=== PATIENT | male | born 1935 | race Caucasian/White ===

== ENCOUNTER 2025-08-20 07:40 | Outpatient (OUT) | payer MEDICARE, SELFPAY ==
--- OUTSIDE RECORDS SUMMARY | 2024-09-18 08:49 | XMS_ITS | Continuity of Care Document ---
Author Organization [facility] Address [address] [place] [address] Phone Care Team Providers Care Storage Specialist Name Role Phone Martell Lynch Unavailable Unavailable Procedures Procedure Date Covid-19 Vaccine Administration 024 Covid-19 Vaccine, 50 Mcg Moderna 12y Plu s Admin influenza virus vac FLU VACC PRSV FREE INC ANTIG Admin Moderna Bvalent Booster 18 And Old er Moderna Booster (Low Dose) Moderna Booster Moderna Booster Moderna Booster Admin influenza virus vac FLU VACC PRSV FREE INC ANTIG Admin influenza virus vac FLU VACC PRSV FREE INC ANTIG Advance Directives Directive Yes / No Effective Date File Name No Information Encounters Encounter Description Practice Location Reason(s) For Visit Diagnoses Date Provider Providers Copied on Encounter [facility], [address], [place], [id number], tel:[phone] [facility] No Information Alex Martínez. [address], [place], [id number], [place]. tel:[phone] [facility], [address] [place] [address], [id number], tel:[phone] [facility] No Information Alex Martínez. [address], [place], [id number], [place]. tel:[phone] [facility], [address], [place], [id number], [place] tel:[phone] [facility] No Information Viscayesha Martínez. [address], [place], [id number], [place]. tel:[phone] [facility], [address], [place], [id number], [place] tel:[phone] [facility] No Information Viscayesha Martínez. [address], [place], [id number], [place]. tel:[phone] [facility], [address], [place], [id number], [place] tel:[phone] [facility] No Information Alex Martínez. [address], [place], [id number], [place]. tel:[phone] [facility], [address], [place], [id number], [place] tel:[phone] [facility] No Information Alex Martínez. [address], [place], [id number], [place]. tel:[phone] [facility], [address] [place] [address], [id number], [place] tel:[phone] [facility] No Information Alex Martínez. [address], [place], [id number], [place]. tel:[phone] Family History Family Member Type Diagnosis Age At Onset No Information Immunizations Vaccine Date Status Comments Spikevax 12y+ administered Source: New Im munization Record Influenza, quadrivalent, hig h dose, injectable, split virus, preservative free, 0.7 mL dose, Fluzone High-Dose Quad administered Source: New Immuniza tion Record Cov-19 administered Source: New Imm unization Record Moderna Booster administered Source: New Immunization Record Moderna Booster administered Source: New Immunization Record Influenza, quadrivalent, hig h dose, injectable, split virus, preservative free, 0.7 mL dose, Fluzone High-Dose Quad administered Source: New Immuniza tion Record Influenza, quadrivalent, hig h dose, injectable, split virus, preservative free, 0.7 mL dose, Fluzone High-Dose Quad administered Source: New Immuniza tion Record Payers Payer name Insurance type Covered green party ID Authoriza tion(s) Medicare PPS MB [id number] Medicare PPS MB [id number] Medicare PPS MB [id number] Medicare PPS MB [id number] [employer] [place] [id number] Medicare PPS MB [id number] Medicare PPS MB [id number] Medicare PPS MB [id number] Medicare PPS MB [id number] Social History Type Description Quantity Date Captured Comments Alcohol Use Details Unknown Caffeine Use Details Unknown Tobacco Use Status No Information Smoking Status No Information Sex Male Sexual Orientation Straight or heterosexual Gender Identity Male Chief Complaint And Reason For Visit No Information Reason For Referral Reason For Referral No Information Plan Of Treatment Date Type Action Status Goal Hep A. Due on du e Goal PRAPARE ASSESSMENT. Due on N due Goal Unhealthy drug use screening . Due on due Goal Influenza vaccine. Due on Oc due Goal Hep A. Due on du e Goal Tdap Vaccine. Due on 2023 due Goal Tdap. Due on due Goal Zoster vaccine (1st). Due on due Goal Depression screening. Due on due Goal Tdap. Due on due Goal Depression screening. Due on due Goal Zoster vaccine (1st). Due on due Goal Influenza vaccine. Due on Oc due Goal PRAPARE ASSESSMENT. Due on O due Goal Tdap. Due on due Goal Depression screening. Due on due Goal Zoster vaccine (). Due on due Goal Influenza vaccine. Due on Oc due Goal PRAPARE ASSESSMENT. Due on S due History Of Present Illness Encounter Date Complaint History Of Prese nt Illness No Information Functional Status Date Functional Assessmen t No Information Instructions Date Instruction Additional Infor mation No Information Assessments Type Assessment Date No Information Patient Care Teams Name Effective Dates (start - stop) Status Members No Information
--- OUTSIDE RECORDS SUMMARY | 2025-08-18 21:07 | XMS_ITS | Continuity of Care Document ---
Author Organization [facility] Address [address] [place] [address] Phone Care Team Providers Care Licensed Loan Officer Name Role Phone Anel Galeano DO Primary Care Provider Anel Galeano DO Attending Provider [phone] Cristina Celaya FILM PROCESSING SUPERVISOR-C Attending Provider [phone] Franklin Gage MD Attending Provider [phone] Care Teams Patient Care Team Team Status: Active Member Role Status Dates Anel Galeano , DO Primary Care Provider Active Visit Care Team Team Status: Inactive Member Role Status Dates Anel Galeano , DO Primary Care Provider Active Start: July 28, 2025 End: July 28, 2025 Aenl Galeano , DO Attending Provider Active Start: July 28, 2025 End: July 28, 2025 Visit Care Team Team Status: Inactive Member Role Status Dates Anel Galeano , DO Primary Care Provider Active Start: July 28, 2025 End: July 28, 2025 Anel Galeano , DO Attending Provider Active Start: July 28, 2025 End: July 28, 2025 Visit Care Team Team Status: Inactive Member Role Status Dates Anel Galeano , DO Primary Care Provider Active Start: July 28, 2025 End: July 28, 2025 Anel Galeano , DO Attending Provider Active Start: July 28, 2025 End: July 28, 2025 Visit Care Team Team Status: Inactive Member Role Status Dates Anel Galeano DO Primary Care Provider Active Start: August 07, 2025 End: August 07, 2025 Anel Galeano DO Attending Provider Active Start: August 07, 2025 End: August 07, 2025 Visit Care Team Team Status: Inactive Member Role Status Dates Anel Galeano DO Primary Care Provider Active Start: August 18, 2025 End: August 18, 2025 VELMA Saravia Attending Provider Active Start: August 18, 2025 End: August 18, 2025 Visit Care Team Team Status: Inactive Member Role Status Dates Franklin Gage MD Attending Provider Active S tart: August 18, 2025 End: August 18, 2025 Anel Galeano DO Primary Care Provider Active Start: August 18, 2025 End: August 18, 2025 Chief Complaint and Reason for Visit Chief Complaint Admit Date abdominal pain, fatigue July 28, 2025 1:22pm R07.89 July 28, 2025 2:41pm R53.83, R07.89, E11.9 July 28 3:00pm R02.02 R53.83 R07.89 R93.89 August 07, 2025 2:13pm Ct done 08/07- Showed infrarenal aortic a neurysm August 18, 2025 9:03am I71.40 - Abdominal aortic aneurysm, with out ruptur August 18, 2025 9:07am Reason for Visit Admit Date Chest tightness July 28, 2025 1:22pm Coronary artery disease July 28, 2025 1:22pm Fatigue July 28, 2025 1:22pm Shortness of breath July 28, 2025 1:22pm Type 2 diabetes mellitus July 28, 2025 1:22pm Abdominal aortic aneurysm August 18, 2025 9:03am Reason for Referral Referring Provider Name Referring Provider Address Referring Provider Phone Referral Date Requested Appointment Date Referral Reason July R06.02 - Shortness of breath,R53.83 - Other fatigue,R07.89 - Other chest pain,I25.10 - Atherosclerotic heart disease of [place] coronary artery without angina pectoris,E11.9 - Type 2 diabetes mellitus without complications Allergies, Adverse Reactions, Alerts Allergen Type Severity Reaction Last Updated Verified Status Penicillins Allergy Unknown Hives August 18, 2025 9:27am Ye s Active Social History Smoking Status Status Start Date End Date Date of Observa tion Ex-smoker (finding) August 18, 2025 9:29am Observation Status Observation Response Date of Response Legal Sex Male (finding) Sex Assigned At Male December [birth year] Family History Relationship Condition Age at Onset Recorded Date/T deneen son Coronary artery disease Unknown mother Cerebrovascular accident (CVA) Unknown brother Stenosis of carotid artery Unknown father Stenosis of carotid artery Unknown Arteriosclerotic cardiovascular disease U nknown brother Unknown Heart disease Unknown father Unknown Heart disease Unknown mother History of stroke Unknown Unknown son Heart disease Unknown Problems Active Problems Medical Problem Onset Date Status Comments H/O colectomy Unknown Active Fatigue Unknown Active Shortness of breath Unknown Active Type 2 diabetes mellitus Unknown Active Coronary artery disease Unknown Active Abdominal aortic aneurysm Unknown Active Anemia Unknown Active Confusion Unknown Active Headache Unknown Active Hyperlipemia Unknown Active Abnormal CXR Unknown Active Hypertension, essential Unknown Active Chest tightness Unknown Active H/O carotid endarterectomy Unknown Active P roblem List clean-up per request of Phys. EHR Cmte Hx-TIA (transient ischemic attack) Unknown Active Carotid stenosis, bilateral Unknown Active Bilateral carotid artery disease Unknown Active Inactive/Resolved Problems Medical Problem Onset Date Status Comments Colon cancer Unknown Resolved Problem List cl teddy-up per request of Phys. EHR Cmte Stenosis of right internal carotid artery Unknown Resolved Problem List clean-u p per request of Phys. EHR Cmte Acute urinary retention Unknown Resolved Medications Medication Status Dose Units Route Directions Qty Days St art Date Stop Date End Date Instructions Adherence Atorvastati n 80 mg tablet Discont inued 80 MG PO Daily at bedtime March 20, 2024 9:19am May 14, 2025 1:54p m Diphenoxyla te-Atropine 2.5-0.025 mg tablet Discont inued 1 TAB PO Three times daily March 28, 2024 3:18pm March 28, 2024 3:19p m Diphenoxyla te-Atropine 2.5-0.025 mg tablet Discont inued 1 TAB PO Three times daily 270 March 28, 2024 3:19pm [facility] 2023 1:12p m Diphenoxyla te-Atropine 2.5-0.025 mg tablet Discont inued 1 TAB PO Three times daily 270 90 Septem gerardo 2023 1:12pm Decem gerardo 2023 9:53a m Atenolol 50 mg tablet Active 50 MG PO Daily 90 Octobe r 2023 2:58pm Unknown Diphenoxyla te-Atropine 2.5-0.025 mg tablet Discont inued 1 TAB PO Three times daily 270 90 Decemb er 2023 9:53am February 02, 2025 8:42p m Metformin 500 mg tablet extended release 24 hr Discont inued 1000 MG PO Every evening 180 Decemb er 2023 9:31am Janua ry 2024 9:30a m Metformin 500 mg tablet extended release 24 hr Discont inued 1000 MG PO Every evening 180 Januar y 2024 9:30am Septe mber 2024 1:57p m Diphenoxyla te-Atropine 2.5-0.025 mg tablet Discont inued 1 TAB PO Three times daily 270 90 February 02, 2025 8:42pm May 12, 2025 12:43 pm Tamsulosin (Flomax) 0.4 mg capsule Active 0.4 MG PO Daily February 26, 2025 9:46pm Unknown Diphenoxyla te-Atropine 2.5-0.025 mg tablet Discont inued 1 TAB PO Three times daily 270 90 May 12, 2025 12:43p m Octob er 2024 12:05 pm Atorvastati n 80 mg tablet Active 80 MG PO Daily at bedtime May 14, 2025 1:54pm Unknown Diphenoxyla te-Atropine 2.5-0.025 mg tablet Active 1 TAB PO Three times daily 270 90 Octobe r 2024 12:04p m Unknown Zinc 50 mg capsule Active 25 MG PO Daily February 11, 2025 12:00a m Unknown PREVOGEN Active 1 TAB PO Daily February 11, 2025 12:00a m Unknown Famotidine (Acid-Pep) 20 mg tablet Active 20 MG PO Daily February 11, 2025 12:00a m Unknown Tamsulosin (Flomax) 0.4 mg capsule Discont inued 0.4 MG PO Daily February 11, 2025 12:00a m February 26, 2025 9:46p m Atorvastati n 80 mg Tablet Discont inued 80 MG PO Daily at bedtime 2019 1:00am March 20, 2024 9:19a m Diphenoxyla te-Atropine 2.5-0.025 mg Tablet Discont inued 1 TAB PO Three times daily 2019 1:00am March 28, 2024 3:19p m Clopidogrel 75 mg Tablet Discont inued 75 MG PO Daily with lunch 2019 1:00am April 07, 2024 2:11p m Famotidine 20 mg Tablet Discont inued 20 MG PO Daily 2019 1:00am May 10, 2020 9:11a m Nitroglycer in 0.4 mg Tablet, Sublingual Discont inued 1 TAB SUBLIN GUAL As Directed as needed for Chest Pain 2019 1:00am [facility] 2024 3:53p m Max 3 doses Docusate Sodium 100 mg Capsule Discont inued 100 MG PO Daily as needed for Constipatio n 2019 1:00am May 10, 2020 9:11a m Metformin 500 mg Tablet Extended Release 24 Hr Discont inued 500 MG PO Daily at bedtime 2019 1:00am [facility] 2023 12:57 pm Atenolol 50 mg Tablet Discont inued 50 MG PO Daily 2019 1:00am [facility] er 2023 2:58p m Multivit-Mi n-Folic-Vit K-Lycop (Men's 50 Plus Multivitami n) 400-20-370 mcg Tablet Discont inued 1 TAB PO Daily 2019 1:00am February 11, 2025 8:15a m Metformin 500 mg tablet extended release 24 hr Discont inued 500 MG PO Twice daily Sept gerardo 2023 12:56p m Dece gerardo 2023 9:10a m Metformin 500 mg tablet extended release 24 hr Discont inued 1000 MG PO Every evening Dece er 2023 9:09am [facility] gerardo 2023 9:31a m Aspirin 81 mg tablet,chew able Active 1 TAB PO Daily April 07, 2024 12:00a m FreeTextSi tablet Orally Once a day; Note: Source Status: Taking; Provider: Froylan Tam ( ) Unknown Cholecalcif jelly (Vitamin D3) 125 mcg (5,000 unit) capsule Active 125 MCG PO Daily April 07, 2024 12:00a m Unknown Cyanocobala min (Vitamin B-12) 1,000 mcg capsule Active 1000 MCG PO Daily April 07, 2024 12:00a m Unknown Finasteride 5 mg tablet Active MG PO April 06, 2025 12:00a m Unknown Blood Sugar Diagnostic (True Metrix Glucose Test Strip) strip Active STRIP .ROUTE .MEDSUPPLY April 06, 2025 12:00a m As directed Polyethylen e Glycol 3350 (Clearlax) 17 gram/dose powder Active 17 GM PO Daily April 06, 2025 12:00a m Unknown Metformin 500 mg tablet extended release 24 hr Active 500 MG PO Twice daily 2024 1:57pm Unknown Nitroglycer in 0.4 mg tablet, sublingual Active 0.4 MG SUBLIN GUAL every 5 to 15 minutes as needed for Chest Pain 14 2024 3:53pm Max 3 doses Unknown Immunizations Immunization Event Date Not Given Reason Dose Number Staffing Rn Lot Number Vaccine Information Statement (VIS) Detail Administration Location COVID-19 mRNA-1273 (Moderna) November 27, 2020 [id number] [facility] COVID-19 mRNA-1273 (Moderna) September 02, 2021 COVID-19 mRNA-1273 (Moderna) February 06, 2022 COVID-19 mRNA-1273 (Moderna) December 24, 2020 [id number] [facility] COVID-19 (MODERNA) 12Y and older September 13, 2023 Influenza vaccine, quadrivalent, adjuvanted September 13, 2023 influenza, unspecified formulation August 29, 2022 RSV, preF3, adj, pf August 15, 2023 Zoster Vaccine Recombinant, Adjuvanted May 04, 2023 Zoster Vaccine Recombinant, Adjuvanted August 15, 2023 Tetanus, Diphtheria adult, 5 Lf pres free abs March 28, 2023 Trivalent Influenza Vaccine August 19, 2021 Medical Equipment Device Date Implanted Device Details Cardiovascular patch, animal-derived December 03, 2019 GABRIELA: [id number] Issuing Agency: [employer] Device Id: [id number] Expiration Date: 2024-05-04 Lot Number: [id number] Serial Number: [id number] Procedures Procedure Date Performed Status XR chest 2V* July 28, 2025 3:08pm comp leted US aorta August 18, 2025 9:07am comple [place] CT chest w con August 07, 2025 2:13pm complet ed Relevant Diagnostic Tests and/or Laboratory Data Laboratory Results Test Collection Date/Time Result Date/Time Result Interpretation Reference Range Result Comment Performing Site Bedside Hemoglobi n A1c July 28, 2025 2:08pm July 28, 2025 2:08pm 6.7 % Corrected White Blood Count July 28, 2025 3:03pm July 28, 2025 4:11pm 8.0 10*3/uL 4.1-10.5 [facility] [id number] [address] [facility] [address] Uncorrect ed WBC Count July 28, 2025 3:03pm July 28, 2025 4:11pm 8.0 10*3/uL 4.1-10.5 [facility] [id number] [address] [facility] [address] Red Blood Count July 28, 2025 3:03pm July 28, 2025 4:11pm 3.84 10*6/uL Below low normal 3.90-5.60 [facility] [id number] [address] [facility] [address] Hemoglobi n July 28, 2025 3:03pm July 28, 2025 4:11pm 12.2 g/dL Below low normal 13.0-17.0 [facility] [id number] [address] [facility] [address] Hematocri t July 28, 2025 3:03pm July 28, 2025 4:11pm 36.3 % Below low normal 38.8-50.0 [facility] [id number] [address] [facility] [address] Mean Corpuscul ar Volume July 28, 2025 3:03pm July 28, 2025 4:11pm 94.5 fL 83.5-101 [facility] [id number] [address] [facility] [address] Mean Corpuscul ar Hemoglobi n July 28, 2025 3:03pm July 28, 2025 4:11pm 31.7 pg 27.5-35.2 [facility] [id number] [address] [facility] [address] Mean Corpuscul ar Hemoglobi n Concent July 28, 2025 3:03pm July 28, 2025 4:11pm 33.5 g/dL 32.5-35.6 [facility] [id number] [address] [facility] [address] Red Cell Distribut ion Width July 28, 2025 3:03pm July 28, 2025 4:11pm 13.3 % 12.0-14.8 [facility] [id number] [address] [facility] [address] Platelet Count July 28, 2025 3:03pm July 28, 2025 4:11pm 209 10*3/uL 150-450 [facility] [id number] [address] [facility] [address] Mean Platelet Volume July 28, 2025 3:03pm July 28, 2025 4:11pm 9.4 fL 6.6-10.1 [facility] [id number] [address] [facility] [address] Neutrophi ls (%) (Auto) July 28, 2025 3:03pm July 28, 2025 4:11pm 69.8 % . [facility] [id number] [address] [facility] [address] Lymphocyt es (%) (Auto) July 28, 2025 3:03pm July 28, 2025 4:11pm 19.2 % . [facility] [id number] [address] [facility] [address] Monocytes (%) (Auto) July 28, 2025 3:03pm July 28, 2025 4:11pm 9.3 % . [facility] [id number] [address] [facility] [address] Eosinophi ls (%) (Auto) July 28, 2025 3:03pm July 28, 2025 4:11pm 1.1 % . [facility] [id number] [address] [facility] [address] Basophils (%) (Auto) July 28, 2025 3:03pm July 28, 2025 4:11pm 0.6 % . [facility] [id number] [address] [facility] [address] Nucleated RBC Relative Count (auto) July 28, 2025 3:03pm July 28, 2025 4:11pm 0.0 /100{WB C} 0-0.5 [facility] [id number] [address] [facility] [address] Neutrophi ls # (Auto) July 28, 2025 3:03pm July 28, 2025 4:11pm 5.6 10*3/uL 1.8-7.7 [facility] [id number] [address] [facility] [address] Lymphocyt es # (Auto) July 28, 2025 3:03pm July 28, 2025 4:11pm 1.5 10*3/uL 1.00-4.8 [facility] [id number] [address] [facility] [address] Monocytes # (Auto) July 28, 2025 3:03pm July 28, 2025 4:11pm 0.7 10*3/uL 0.0-0.8 [facility] [id number] [address] [facility] [address] Eosinophi ls # (Auto) July 28, 2025 3:03pm July 28, 2025 4:11pm 0.1 10*3/uL 0.0-0.45 [facility] [id number] [address] [facility] [address] Basophils # (Auto) July 28, 2025 3:03pm July 28, 2025 4:11pm 0.0 10*3/uL 0.0-0.2 [facility] [id number] [address] [facility] [address] Glucose Level July 28, 2025 3:03pm July 28, 2025 4:25pm 141 mg/dL Above high normal 70-100 ADA recommended reference rangeRandom Glucose Reference Range is dependent on time and content of last meal. Glucose of more than 200 mg/dL in a nonstressed, ambulatory subject supports the diagnosis of Diabetes Mellitus. [facility] [id number] [address] [place] [id number] Blood Urea Nitrogen July 28, 2025 3:03pm July 28, 2025 4:25pm 17 mg/dL 7-25 [facility] [id number] [address] [place] 7931470 Creatinin e July 28, 2025 3:03pm July 28, 2025 4:25pm 1.15 mg/dL 0.70-1.30 [facility] [id number] [address] [place] 7931470 Estimated GFR (CKD-EPI) July 28, 2025 3:03pm July 28, 2025 4:25pm > 60.0 mL/Min [facility] [id number] [address] [place] 7931470 Sodium Level July 28, 2025 3:03pm July 28, 2025 4:25pm 138 mmol/L 136-145 [facility] [id number] [address] [place] 7[address]1470 Potassium Level July 28, 2025 3:03pm July 28, 2025 4:25pm 4.4 mmol/L 3.5-5.1 [facility] [id number] [address] [facility] [address] Chloride Level July 28, 2025 3:03pm July 28, 2025 4:25pm 99 mmol/L 98-107 [facility] [id number] [address] [place] 7[address]1470 Carbon Dioxide Level July 28, 2025 3:03pm July 28, 2025 4:25pm 30.8 mmol/L 21.0-31.0 [facility] [id number] [address] [place] 7[address]1470 Anion Gap July 28, 2025 3:03pm July 28, 2025 4:25pm 12.6 mEq/L 6.0-15.0 [facility] [id number] [address] [place] 7[address]1470 Calcium Level July 28, 2025 3:03pm July 28, 2025 4:25pm 9.7 mg/dL 8.6-10.3 [facility] [id number] [address] [facility] [address] Total Protein July 28, 2025 3:03pm July 28, 2025 4:25pm 7.1 g/dL 6.4-8.9 [facility] [id number] [address] [facility] [address] Albumin July 28, 2025 3:03pm July 28, 2025 4:25pm 4.3 g/dL 3.5-5.7 [facility] [id number] [address] [facility] [address] Globulin July 28, 2025 3:03pm July 28, 2025 4:25pm 2.8 g/dL [facility] [id number] [address] [facility] [address] Albumin/G lobulin Ratio July 28, 2025 3:03pm July 28, 2025 4:25pm 1.5 [facility] [id number] [address] [place] [address] Total Bilirubin July 28, 2025 3:03pm July 28, 2025 4:25pm 1.3 mg/dL Above high normal 0.3-1.0 Samples from patients who have taken Naproxen have shown spurious elevation in Total Bilirubin levels. A metabolite of Naproxen, O-desmethyln aproxen, has been shown to interfere with the Shanda-Sylvester underwood method for measuring Total Bilirubin. [facility] [id number] [address] [facility] [address] Aspartate Amino Transf (AST/SGOT ) July 28, 2025 3:03pm July 28, 2025 4:25pm 16 U/L 13-39 [facility] [id number] [address] [facility] [address] Alanine Aminotran sferase (ALT/SGPT ) July 28, 2025 3:03pm July 28, 2025 4:25pm 15 U/L 7-52 [facility] [id number] [address] [facility] [address] Alkaline Phosphata se July 28, 2025 3:03pm July 28, 2025 4:25pm 74 U/L 34-104 [facility] [id number] [address] [facility] [address] Iron Level July 28, 2025 3:03pm July 28, 2025 4:25pm 72 ug/dL 50-212 [facility] [id number] [address] [place] [address] Total Iron Binding Capacity July 28, 2025 3:03pm July 28, 2025 4:25pm 339 ug/dL 255-450 [facility] [id number] [address] [place] [address] Iron Saturatio n July 28, 2025 3:03pm July 28, 2025 4:25pm 21.2 % 20-50 [facility] [id number] [address] [place], [place] [address] Transferr in July 28, 2025 3:03pm July 28, 2025 4:25pm 242 mg/dL 203-362 [facility] [id number] [address] [place] [address] Ferritin July 28, 2025 3:03pm July 28, 2025 4:40pm 58.6 ng/mL 23.9-336.2 [facility] [id number] [address] [place] [address] Vitamin B12 Level July 28, 2025 3:03pm July 28, 2025 5:56pm 1699 pg/mL Above high normal 180-914 [facility] [id number] [address] [place] [address] Folate July 28, 2025 3:03pm July 28, 2025 5:56pm > 49.6 ng/mL >5.9 Folate reference range: >5.9 ng/mlThe WHO technical consultation on folate and vitamin [id number] ies has determined that folate concentratio ns lessthan 4 ng/ml are considered deficient. [facility] [id number] [address] [facility] [address] Free Thyroxine July 28, 2025 3:03pm July 28, 2025 4:34pm 1.13 ng/dL Above high normal 0.61-1.12 [facility] [id number] [address] [place] [address] Thyroid Stimulati ng Hormone 3rd Gen July 28, 2025 3:03pm July 28, 2025 4:32pm 3.42 u[iU]/m L 0.45-5.33 [facility] [id number] [address] [place] [address] Pharmacy Creatinin e Clearance (Chem July 28, 2025 3:03pm July 28, 2025 4:25pm N/A [facility] [id number] [address] [place] [address] Diagnostic Imaging Reports Author Franklin Gage [facility] Report Date/Time August 18, 2025 9 :38am [facility] [address] [place], [place] [address] Ultrasound Report Signed Patient: Ray Kidd MR#: [id number] : 1935 Acct:[id number] Age/Sex: 89 / M ADM Date: Loc: [facility] Room: Type: [facility] [address] Attending Dr: Franklin Gage MD Ordering Provider: Franklin Gage MD Date of Service: 08/18/25 US/US aorta: I71.40 - Abdominal aortic aneurysm, without rupture, unsp... Copies to: Franklin Gage MD~ ULTRASOUND OF THE ABDOMINAL AORTA: CLINICAL INFORMATION: Abdominal aortic aneurysm noted on CT COMPARISON : CT scan TECHNIQUE AND FINDINGS: Multiple ultrasonographic scans of the abdominal aorta were obtained and show Following measurement were obtained: Proximal height: 2.51 cm width : 2.1 Mid height: 2 cm width : 1.8 Distal height: 3.91 cm width : 4.2 Bilateral common iliac arteries measure 1.1 in height and 1.1 in width on the right and 1.2 in height and 1.0 in width on the left US/US aorta IMPRESSION: 4.2 CM INFRARENAL ABDOMINAL AORTIC ANEURYSM Impression dictated by: Franklin Gage M.D. 08/18/2025 9:38 AM Dictation Location: [place] [address] Tech: Carolina Lance Transcribed By: HERMELINDA 08/18/25 0938 Dictated By: Franklin Gage MD 08/18/25 0937 Signed By: <Electronically signed by MD Franklin Gage in OV> 08/18/25 0938 Vital Signs Vital Reading Result Reference Range Collection Date/Time Height 65 [in_i] July 28, 2025 1:58pm Weight 60.55 kg July 28, 2025 1:58pm Body Temperature 97.9 [degF] 97.6-99.0 July 072024 1:58pm Heart Rate 55 /min 60-100 July 28, 2025 1:58pm Oxygen saturation by Pulse oximetry 96 % 95-100 July 28, 2025 1:58pm BP Systolic 106 mm[Hg] 100-140 July 28, 2025 1:58pm BP Diastolic 60 mm[Hg] 60-100 July 28, 2025 1:58pm BMI (Body Mass Index) 22.1 kg/m2 Sept2024 1:58pm Height 65 [in_i] August 18, 025 9:30am Weight 60.00 kg August 18, 025 9:30am Body Temperature 98.2 [degF] 97.6-99.0 August 9:30am Heart Rate 72 /min 60-100 August 18, 025 9:30am Respiratory rate 16 /min 12-24 August 9:30am Oxygen saturation by Pulse oximetry 97 % 95-100 August 18, 2025 9 :30am BP Systolic 122 mm[Hg] 100-140 August 18, 2 025 9:30am BP Diastolic 82 mm[Hg] 60-100 August 18, 2 025 9:30am BMI (Body Mass Index) 22.0 kg/m2 Octobe r 2024 9:30am Advance Directives Advance Directive Response Recorded Date/ Time Advance Directives No August 06, 2017 7:03am Insurance Providers Guarantor Ray Kidd Address [address] [place] [address] [place] [address] Contact Info. Home Phone: Payer Policy Id Subscriber's Name Subscriber Id Effectiv e Date Expiration Date Dino KOHLI/BEN [id number] Ray Kidd [id number] Medicare [id number] Ray Kidd [id number] Encounters Encounter Location(s) Arrival/Admit Date Discharge/Depart Date Provider(s) Departed Physician/Prov ider Office Visit -[facility] July 28, 2025 1:22pm July 28, 2025 2:57pm Anel Galeano DO Departed Clinical -EKG [facility] July 28, 2025 2:41pm July 28, 2025 2:42pm Anel Galeano DO Departed Clinical -X-Ray [facility] July 28, 2025 3:00pm July 28, 2025 3:01pm Anel Galeano DO Departed Clinical -CT Scan [facility] August 07, 2025 2:13pm August 07, 2025 2:14pm Anel Galeano DO Departed Physician/Prov ider Office Visit -[facility] S[facility] August 18, 2025 9:03am August 18, 2025 9:47am Cristina Celaya APRN Departed Clinical -Ultrasound [facility] August 18, 2025 9:07am August 18, 2025 9:08am Franklin Gage MD Recent Diagnosis Onset Date Admit Date Chest tightness Unknown July 28, 2025 1:22pm Coronary artery disease Unknown Julembe r 2024 1:22pm Fatigue Unknown July 28, 2025 1:22pm Shortness of breath Unknown July 282024 1:22pm Type 2 diabetes mellitus Unknown Septemb er 2024 1:22pm Abdominal aortic aneurysm Unknown [facility]2024 9:03am Assessments Diagnosis Onset Date Resolution Status Admit Date Chest tightness acute July 28, 2025 1:22pm Coronary artery disease acute S eptember 2024 1:22pm Fatigue acute July 1:22pm Shortness of breath acute Septe mber 2024 1:22pm Type 2 diabetes mellitus acute July 28, 2025 1:22pm Abdominal aortic aneurysm acute August 18, 2025 9:03am Plan of Treatment Author Anel Galeano [facility] Authored July 28, 2025 3:55pm He is here with his for a good couple week history has not been feeling well. He did start with some abdominal pain but now just generally feeling some tightness in his abdomen and his chest he describes it like having the flu. This is bilateral chest. No real chest pain he just describes it as tightness. This is worse in the morning resolves towards the end of the day. He also gets some shortness of breath mainly when he is walking the dog in the evening (he only walks the dog in the evening). He does have a history of coronary artery disease this was many years ago. He does not get any diaphoresis. EKG in the office looks nonacute but I do not have anything to compare this to. We will get him set up with cardiology, will await official EKG read. He does today have a new systolic murmur we will get an echo. Will also order stress test given history of CAD and his generalized fatigue. Today in the office he will go down and get labs and a chest x-ray. I did discuss with him and his that if he gets worsening chest symptoms or worsening shortness of breath or diaphoresis he really needs to go to the ER. They both voiced understanding to this recommendation. We will go from there with the results. Given physical limitations and the shortness of breath I do not think he can do an exercise stress test, therefore we will do a Lexiscan. Author Cristina Celaya [facility] Authored August 18, 2025 9 :57am We reviewed his previously o btained CT of the chest with contrast which showed a partially visualized fusiform type infrarenal abdominal aneurysm measuring 4.1 cm in greatest diameter. At today's visit we did obtain an abdominal ultrasound to properly measure his aneurysm which showed abdominal aortic aneurysm 4.2 cm in greatest diameter by ultrasound findings. Right iliac measures 1.1 cm, left iliac 1.2 cm. We reviewed the aneurysm handout and I addressed all their questions at today's visit. He has no abdominal complaints at today's visit. He does not have any known family history of abdominal aneurysm. He is a non-smoker. And his blood pressure is well-controlled on medications. 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 We will tack this onto his already scheduled visit for his routine carotid surveillance studies. He knows to call us in the meantime with any issues or concerns whatsoever. Future Tests Future scheduled test information is unavailable Pending Tests Test Name Ordered Date Scheduled Date ECH echo transthoracic July 28, 2025 2:40 pm US aorta August 18, 2025 9:51am 5 [facility] Future Visits Future appointment information is unavailable Referrals to Other Providers Reason for Referral Referral Start Date Provider Provider Contact Information Provider Address R06.02 - Shortness of breath,R53.83 - Other fatigue,R07.89 - Other chest pain,I25.10 - Atherosclerotic heart disease of [place] coronary artery without angina pectoris,E11.9 - Type 2 diabetes mellitus without complications July 28, 2025 [facility] - Cardiology Work Phone: [address] [place] [address], [phone] [facility] [id number] Future Procedures Procedure Name Ordered Date Scheduled Date STR cardiac stress/lexiscan July 28, 2025 2:40pm Future Medications Future medication information is unavailable Patient Instructions Patient instructions are unavailable
--- OUTSIDE RECORDS SUMMARY | 2025-08-20 07:47 | XMS_ITS | Clinical Summary ---
Author Organization [facility] Address [address] [place] [phone] Phone Care Team Providers Care Housekeeper Home Name Role Phone Yesika Hernandez MD Primary Care Provider Unav ailable Social History Tobacco Use Types Packs/Day Years Used Date Smoking Tobacco: Never Assessed Sex and Gender Information Value Date Recorded Sex Assigned at Not on file Legal Sex Male 11:37 PM EST Gender Identity Not on file Sexual Orientation Not on file Plan of Treatment Not on file Care Teams Housekeeper Home Relationship Specialty Start Date End Date Yesika Henrandez MD PCP - General 10/21/19
--- NOTE | 2025-08-20 09:00 | CA_ITS ---
Patient Name: ZARI HILLS MR#: [id number] : 1935 Exam Date: 08/20/2025 Ordering Doctor: SENTHIL PICKARD ECHOCARDIOGRAM REPORT PROCEDURE: CA ECHO DOPPLER COMPLETE INDICATIONS: Shortness of breath, chest tightness, fatigue, CABGx5, diabetes COMPARISON: None. DESCRIPTION: COMPLETE ECHOCARDIOGRAM Real-time transthoracic echocardiography with 2D, M-mode, spectral and color flow Doppler performed. QUALITY: Technical quality was good. LEFT VENTRICLE: Normal chamber size. Normal left ventricular wall thickness. LV EF: Global left ventricular systolic function is severely reduced; visually estimated ejection fraction is 10 is 15%. Diffuse global hypokinesis with regional variability. DIASTOLIC: Diastolic dysfunction. E/E' consistent with volume overload. ATRIAL SEPTUM: Visually appears intact. LEFT ATRIUM: Severe dilatation. RIGHT ATRIUM: Normal chamber size. RIGHT VENTRICLE: Normal chamber size. Decreased right ventricular systolic function. TRICUSPID VALVE: Normal mobility and thickness. Moderate regurgitation. Doppler studies reveal severely (>60) elevated right sided pressures. RVSP 73 mmHg MITRAL VALVE: Mildly thickened with normal mobility. No evidence of mitral valve stenosis. Mild mitral annular calcification. Severe mitral regurgitation. AORTIC VALVE: Normal trileaflet appearance. Moderately calcified aortic valve with diminished mobility. Doppler velocity suggests moderate to severe low-flow, low-gradient aortic valve stenosis. DVI 0.26, ALEXIS 0.9 cm2, mean 10 mmHg, peak 2.22 m/s. No aortic regurgitation. AORTIC ROOT: Normal diameter and appearance. Ascending aorta and aortic arch are normal in size. PULMONIC VALVE: Normal thickness and mobility. No stenosis. Trivial regurgitation. PERICARDIUM: No evidence of pericardial effusion. IVC: Collapses with inspiration. IVC is dilated (2.2cm) CONCLUSION: 1. Global left ventricular systolic function is severely reduced; visually estimated ejection fraction is 10 to 15% 2. The right ventricle is normal in size with reduced systolic function 3. Diastolic dysfunction; E/E' consistent with volume overload 4. The left atrium is severely enlarged 5. Moderate tricuspid regurgitation 6. Severely elevated right ventricular systolic pressure; RVSP 73 mmHg 7. Severe mitral regurgitation 8. Moderate to severe, low-flow, low gradient aortic valve stenosis; DVI 0.26, ALEXIS 0.92 cm? Adult Echocardiography Procedure Report Left Ventricle LVEDD (3.7 - 5.6 cm): 4.81 cm LVESD (2.2 - 4.0 cm): 4.70 cm LVIVS thickness (0.6 - 1.2 cm): 1.06 cm LVPW thickness (0.5 - 1.0 cm): 1.04 cm e': 0.07 m/s E - e': 13.27 LVOT Max Gradient: 1.29 mm[Hg] LVOT Area (cm2): 0.57 m/s Peak Velocity (LVOT): 0.57 m/s Mean Velocity (LVOT): 0.38 m/s LVOT Diameter 2.02 cm Left Atrium LA Volume Index (2D A2C): 59.30 ml/m2 Left Atrium Systolic Dimension: 3.86 cm Mitral Valve MV E to A Ratio: 3.25 Mitral Valve A-Wave Peak Velocity: 0.30 m/s Mitral Valve E-Wave Peak Velocity: 0.99 m/s Right Ventricle Aorta AO Root Diam: 3.26 cm Ascending Ao Diam: 2.82 cm Aortic Valve AoV Area (Peak Tom): 0.82 cm2, 0.93 cm2 AoV Area (VTI): 0.89 cm2, 0.95 cm2 Peak Velocity(Antegrade Flow): 1.95 m/s, 2.15 m/s, 2.22 m/s Peak Gradient(Antegrade Flow): 15.20 mm[Hg], 18.57 mm[Hg], 19.77 mm[Hg] Mean Velocity(Antegrade Flow): 1.33 m/s, 1.38 m/s, 1.41 m/s Mean Gradient(Antegrade Flow): 8.07 mm[Hg], 9.11 mm[Hg], 9.58 mm[Hg] Velocity Time Integral: 46.06 cm, 48.96 cm, 45.63 cm Tricuspid Valve Peak Velocity (Regurgitant Flow): 3.80 m/s, 3.61 m/s, 3.60 m/s, 4.04 m/s Pulmonic Valve Peak Gradient: 1.66 mm[Hg], 1.87 mm[Hg] Right Atrium Right Atrium Systolic Pressure: 50.20 ml, 50.20 ml Dictated by: Toni Moss M.D. on 08/20/2025 at 16:02 Approved by: Toni Moss M.D. on 08/20/2025 at 16:09
== END 2025-08-20 07:41 | disposition home or self-care (01) ==
LOC: CARD 07:44
DX: R07.89 Other chest pain (principal); R06.02 Shortness of breath; R53.83 Other fatigue; I25.10 Atherosclerotic heart disease of native coronary artery without angina pectoris
CPT/HCPCS: 93306; 93356